=== PATIENT | male | born 1960 | race Caucasian/White ===

== ENCOUNTER 2020-05-02 13:16 | Inpatient (IN) ==
[~2020-05-02 13:16] MED LIST: Amiodarone IV 150 mg/3 ml VIAL ONE; Heparin 1,000 UNIT/ML 10 ml (10,000 UNITS) CATHLAB/DIALYSIS ONE; Heparin 2 UNITS/ML 1000 mls IV ONE; Iohexol 350 (CONTRAST) 100 ML PAK IV ONE; Iohexol 350 (CONTRAST) 200 ML MDV IV ONE; Lidocaine 1% VIAL 10 MG/ML VIAL ONE; Midazolam 5 mg/5 ml VIAL 1 mg/ml 5 ml VIAL (5 mg) ONE; VERAPAMIL 2.5 MG/ML 2 ML VIAL ** 5 mg/2 ml ONE; fentaNYL 100 mcg/2 ml 50 MCG/ML VIAL ONE; nitroGLYCERIN DRIP 100 MCG/ML 250 ML BTL ONE
[2020-05-02 13:36] LABS: ABS Eosinophils 0.1 10^3/ul (0-0.6); ABS Lymphocytes 1.5 10^3/ul (1.0-4.8); ABS Monocytes 0.2 10^3/ul (0-0.8); ABS Neutrophils 14.2 10^3/ul (1.5-7.7); Eosinophil % 0.6 %; Hematocrit 46 % (42-52); Hemoglobin 15.9 g/dL (14.0-18.0); Lymphocyte % 9.3 %; Mean Corpuscular HGB Conc 35 g/dL (31-36); Mean Corpuscular Hemoglobin 33 pg (27-31); Mean Corpuscular Volume 96 fL (80-94); Mean Platelet Volume 9.1 fL (7.4-10.4); Platelet Count 264 10^3/uL (150-450); Red Blood Count 4.76 10^6 /uL (4.18-5.48); Red Cell Distribution Width 12 % (10-15)
[2020-05-02 13:56] LABS: ALT 31 U/L (7-52); AST 47 U/L (13-39); Albumin 4.1 g/dL (3.2-5.2); Albumin/Globulin Ratio 1.4 (1-3); Alkaline Phosphatase 69 U/L (34-104); Anion Gap 9 mmol/L (2-11); BUN/Creatinine Ratio 14.3 (8-20); Blood Urea Nitrogen 13 mg/dL (6-24); CO2 Carbon Dioxide 29 mmol/L (22-32); Calcium 9.5 mg/dL (8.6-10.3); Chloride 101 mmol/L (101-111); EGFR African American 103.2 (>60); EGFR Non-African American 85.3 (>60); Glucose 224 mg/dL (70-100); Potassium 3.6 mmol/L (3.5-5.0); Sodium 139 mmol/L (135-145); Total Protein 7.1 g/dL (6.4-8.9)
[2020-05-02 14:05] LABS: Troponin I 1.45 ng/mL (<0.03)
[2020-05-02] MEDS ORDERED: NS 0.9% 1000 ml BAG 1,000 ML IV ONE (14:11)
[2020-05-02 14:15] LABS: INR 0.97 (0.82-1.09)
[2020-05-02 14:39] LABS: Activated Partial Thrombo Time 111.4 seconds (26.0-38.0)
[2020-05-02 15:25] LABS: Creatine Kinase 1131 U/L (10-223)
[2020-05-02 15:29] LABS: CKMB ng/mL 209.6 ng/mL (0.6-6.3)
[2020-05-03 02:19] LABS: ABS Basophils 0.1 10^3/ul (0-0.2); ABS Eosinophils 0.1 10^3/ul (0-0.6); ABS Lymphocytes 2.7 10^3/ul (1.0-4.8); ABS Monocytes 0.9 10^3/ul (0-0.8); ABS Neutrophils 12.7 10^3/ul (1.5-7.7); Eosinophil % 0.6 %; Hematocrit 44 % (42-52); Hemoglobin 15.3 g/dL (14.0-18.0); Lymphocyte % 16.5 %; Mean Corpuscular HGB Conc 35 g/dL (31-36); Mean Corpuscular Hemoglobin 34 pg (27-31); Mean Corpuscular Volume 96 fL (80-94); Platelet Count 258 10^3/uL (150-450); Red Blood Count 4.58 10^6 /uL (4.18-5.48); Red Cell Distribution Width 12 % (10-15); White Blood Count 16.5 10^3/uL (3.5-10.8)
[2020-05-03 02:36] LABS: Anion Gap 8 mmol/L (2-11); BUN/Creatinine Ratio 14.9 (8-20); Blood Urea Nitrogen 11 mg/dL (6-24); CO2 Carbon Dioxide 24 mmol/L (22-32); Calcium 8.8 mg/dL (8.6-10.3); Chloride 105 mmol/L (101-111); Cholesterol 173 mg/dL; Creatine Kinase 1196 U/L (10-223); EGFR Non-African American 108.3 (>60); Glucose 152 mg/dL (70-100); HDL Cholesterol 37.6 mg/dL; LDL Cholesterol 100 mg/dL; Potassium 3.6 mmol/L (3.5-5.0); Sodium 137 mmol/L (135-145); Triglycerides 175 mg/dL
[2020-05-03 02:41] LABS: CKMB ng/mL 258.7 ng/mL (0.6-6.3)
[2020-05-03 02:44] LABS: Troponin I 52.42 ng/mL (<0.03)
[2020-05-03] MEDS: Lactated Ringers 1000 ml BAG 1,000 ML IV SCH ×3 (03:34→21:34)
[2020-05-03] MEDS: Heparin 5000 UNITS/ML 1 mL VIAL SUBCUT SCH ×3 (06:10→21:33)
[2020-05-03] MEDS ORDERED: Albuterol HFA INHALER 8 gm MDI INH PRN (06:16)
[2020-05-03] MEDS ORDERED: Potassium Chlor 20 meq TAB.ER PO ONE (08:00)
[2020-05-03 12:28] LABS: Creatine Kinase 770 U/L (10-223)
[2020-05-03 12:32] LABS: Troponin I 30.32 ng/mL (<0.03)
[2020-05-03 12:33] LABS: CKMB ng/mL 147.3 ng/mL (0.6-6.3)
[2020-05-04] MEDS: Lactated Ringers 1000 ml BAG 1,000 ML IV SCH (05:51)
[2020-05-04] MEDS: Heparin 5000 UNITS/ML 1 mL VIAL SUBCUT SCH ×2 (05:57→14:18)
[2020-05-04 12:24] VITALS: BP 122/77
== END 2020-05-04 14:45 | disposition home or self-care (01) | DRG 174 ==
LOC: ED 13:16 → CHICATH 13:53 → ICU 14:26 → MEDTELE 05-03 10:53
PROVIDERS: ADMIT Internal Medicine Cardiovascular Disease; ATTEND Internal Medicine Cardiovascular Disease